=== PATIENT | male | born 1995 | race African-American/Black ===

== ENCOUNTER 2017-01-16 19:59 | Emergency (ER) | payer OTHER ==
[~2017-01-16] VITALS: Ht 188 cm; Wt 81.8 kg
[2017-01-16 20:00] VITALS: BP 139/77
[2017-01-16] MEDS ORDERED: NITROFURANTOIN (MACROBID) 100 MG CAP PO ONE (22:45)
[2017-01-16] MEDS ORDERED: PHENAZOPYRIDINE 100 MG TAB PO ONE (22:45)
[2017-01-16] MEDS ORDERED: MACR100C43 PO (22:52)
[2017-01-16] MEDS ORDERED: PYRI1TAB5 PO (22:52)
== END 2017-01-16 22:59 | disposition home or self-care (01) ==
LOC: M ED 19:59
DX: N39.0 Urinary tract infection, site not specified (principal)